=== PATIENT | male | born 1985 | race Caucasian/White ===

== ENCOUNTER 2020-09-24 14:46 | Emergency (ER) | payer BC, OTHER ==
[~2020-09-24] VITALS: Ht 188 cm; Wt 92.9 kg
--- NOTE | 2020-09-24 16:47 | NUR ---
Patient to room from yony, gait steady
[2020-09-24] MEDS ORDERED: CETI10CA PO (16:59)
--- NOTE | 2020-09-24 17:08 | NUR ---
This is a 35 yo male coming in with c/o lightheadedness, "my head has been feeling heavy, but not really like a headache", with intermittent blurred vision x3 days. 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 Denies any other symptoms, denies any medical hx, mother recently had stroke and has HTN. Monitoring in place, vss, nadn. Call light in reach, awaiting further orders.
[2020-09-24 18:30] LABS: BASOPHILS % (AUTO) 0 % (0-1); EOSINOPHILS % (AUTO) 4 % (1-7); LYMPHOCYTES % (AUTO) 26 % (22-44); MEAN CORPUSCULAR HEMOGLOBIN 27.1 pg (27.5-34.5); MEAN CORPUSCULAR HGB CONC 33.6 g/dL (33.2-36.2); MEAN PLATELET VOLUME 7.8 fL (7.4-10.4); MONOCYTES % (AUTO) 5 % (2-9); NEUTROPHILS % (AUTO) 65 % (42-75); PLATELET COUNT 223 x10^3/uL (130-400); RED BLOOD COUNT 5.76 x10^6/uL (4.38-5.82); RED CELL DISTRIBUTION WIDTH 13.6 % (9.4-14.8)
--- NOTE | 2020-09-24 18:30 | NUR ---
PATIENT RESTING ON GURNEY, RESPIRATIONS EVEN AND UNLABORED, VSS, NADN
[2020-09-24 18:33] LABS: MD NO
[2020-09-24 18:40] LABS: ALANINE AMINOTRANSFERASE 40 U/L (12-78); ALBUMIN 4.1 g/dL (3.4-5.0); ANION GAP 6 mmol/L (5-15); CALCIUM 8.9 mg/dL (8.5-10.1); CHLORIDE 107 mmol/L (98-107); CREATININE 1.04 mg/dL (0.7-1.3)
[2020-09-24 18:51] LABS: ALKALINE PHOSPHATASE 73 U/L (45-117); BILIRUBIN,TOTAL 0.4 mg/dL (0.2-1.0); TOTAL PROTEIN 7.6 g/dL (6.4-8.2)
--- NOTE | 2020-09-24 19:20 | NUR ---
ERP IN ROOM
[2020-09-24 20:32] VITALS: BP 119/75
--- NOTE | 2020-09-24 20:35 | NUR ---
Patient given discharge instructions and they have confirmed that they understand the instructions. Patient ambulatory with steady gait.
== END 2020-09-24 20:41 | disposition home or self-care (01) ==
LOC: ED 16:56
DX: R42 Dizziness and giddiness (principal); R55 Syncope and collapse
CPT/HCPCS: 36415; 80053; 84443; 85025; 93005; 99284